=== PATIENT | female | born 1935 | race Caucasian/White ===

== ENCOUNTER 2017-01-11 02:16 | Inpatient (IN) | payer OTHER, BC ==
[2017-01-11] VITALS (7 sets, daily range): BP systolic 140–167; BP diastolic 53–83
[~2017-01-11] VITALS: Ht 165.1 cm; Wt 66.7 kg
--- NOTE | ~2017-01-11 | EKG ---
[place] [address] [facility] [employer] [place] [address] ELECTROCARDIOGRAM REPORT Name: KALIN SILVERMAN Room #: 440-P ADM IN M.R.#: [id number] Admission: 01/11/17 Attend Phys: Kenan Ricci DO Discharge: Date of : 39 Report #: [id number] THIS REPORT FOR: //name// [facility] ED Test Date: 2017-01-11 Test Time: 02:22:58 Pat Name: KALIN SILVERMAN Department: Room: 440 Gender: F Instructional Facilitator: LYDIA : 1935 Requested By: Saulo Arreola Order Number: [id number] MD: Hunter Nielsen Measurements Intervals [place] Rate: 97 P: 89 ME: 139 QRS: 72 QRSD: 100 T: 43 QT: 340 QTc: 432 Interpretive Statements Sinus rhythm Ventricular premature complex Nonspecific ST segment abnormality No previous ECG available for comparison Electronically Signed On 01-11-2017 9:06:47 CDT by Hunter Nielsen [email or web address] <ELECTRONICALLY SIGNED> By: Hunter Nielsen MD, [facility] 01/11/17 0906 1 1 Hunter Nielsen MD, FACC /EPI
[~2017-01-11 02:16] MED LIST: ADVAIR 250-501 EACH INH; DOXYCYCLINE 10100 MG PO; DUONEB 2.5-0.5 M3 ML INH; LEVAQUIN 750 M750 MG PO; LISINOPRIL5 MG PO; MEDROLDOSEPACK PO; OSELB75 PO; PREDNISONE 20 M20 MG PO; UNICOMPLEX M TA1 TA1 PO
[2017-01-11 03:14] LABS: HEMATOCRIT 39.7 % (37.0-47.0); HEMOGLOBIN 13.3 gm/dL (12.0-15.0); MCH 30.2 pg (26.0-34.0); MCHC 33.6 g/dL (28.0-37.0); MCV 89.8 fL (80.0-100.0); PLATELET COUNT 187 thou/uL (150-400); RBC 4.42 mil/uL (4.20-5.00); RDW 13.1 % (10.5-14.5); WBC 7.1 thou/uL (4.0-11.0)
[2017-01-11 03:15] LABS: MANUAL DIFF YES
[2017-01-11 03:20] LABS: ANION GAP 10 mmol/L (7-16); BUN 12 mg/dL (7-18); CALCIUM 8.8 mg/dL (8.5-10.1); CHLORIDE 105 mmol/L (98-107); CO2 25 mmol/L (21-32); CREATININE 0.7 mg/dL (0.6-1.3); GLUCOSE 128 mg/dL (70-99); POTASSIUM 3.8 mmol/L (3.5-5.1); SODIUM 140 mmol/L (136-145)
[2017-01-11 03:39] LABS: ALBUMIN 3.2 g/dL (3.4-5.0); ALKALINE PHOSPHATASE 61 U/L (46-116); CK-MB MASS 1.6 ng/mL (<0.5-3.6); MAGNESIUM 2.1 mg/dL (1.8-2.4); NT-PRO BRAIN NAT PEPTIDE 161 pg/mL (<300); SGOT 25 U/L (15-37); SGPT 26 U/L (30-65); TOTAL BILIRUBIN 0.5 mg/dL (<0.1-1.0); TOTAL PROTEIN 6.9 g/dL (6.4-8.2); TROPONIN-I < 0.04 ng/mL (<0.04-0.07)
[2017-01-11 03:40] LABS: ABSOLUTE NEUTROPHILS 4.9 thou/uL (1.4-8.2); ATYPICAL LYMPHS 6 %; TOTAL CELL COUNT 100
[2017-01-11 03:56] LABS: APTT 29.5 Seconds (24.5-32.8); PROTIME 10.5 Seconds (9.3-11.4)
[2017-01-11] MEDS ORDERED: STIOLTO RESPIMAT4 GM IH (04:56)
[2017-01-11] MEDS ORDERED: OCUVITE TABLET1 EAC1 PO (05:06)
[2017-01-11] MEDS ORDERED: ACETYL L-CARNI500 MG PO (05:07)
[2017-01-11] MEDS ORDERED: NAC500 MG PO (05:07)
[2017-01-11] MEDS ORDERED: VITAMIN B-50 (05:09)
[2017-01-11] MEDS ORDERED: VITAMINC500 PO (05:10)
[2017-01-11] MEDS ORDERED: 5-HTP50 MG (05:10)
[2017-01-11] MEDS ORDERED: UBIQUINOL100 MG (05:11)
[2017-01-11] MEDS ORDERED: GLUTATHIONE MC (05:12)
[2017-01-11] MEDS ORDERED: TURMERIC500 M1 PO (05:13)
[2017-01-11] MEDS ORDERED: L-LYSINE500 M1 (05:14)
[2017-01-11] MEDS ORDERED: SELENIMIN50 MCG (05:14)
[2017-01-11] MEDS ORDERED: COCONUT OIL100 GM (05:16)
[2017-01-11] MEDS ORDERED: GARLIC OIL3 MG (05:18)
[2017-01-11] MEDS ORDERED: ALLERGY SHOT (05:20)
[2017-01-11] MEDS ORDERED: B SHOT (05:25)
[2017-01-12 04:17] VITALS: BP 152/77
[2017-01-12 05:37] LABS: HEMATOCRIT 37.2 % (37.0-47.0); HEMOGLOBIN 12.4 gm/dL (12.0-15.0); MCH 30.1 pg (26.0-34.0); MCHC 33.4 g/dL (28.0-37.0); MCV 90.3 fL (80.0-100.0); PLATELET COUNT 183 thou/uL (150-400); RBC 4.12 mil/uL (4.20-5.00); RDW 13.6 % (10.5-14.5); WBC 7.1 thou/uL (4.0-11.0)
[2017-01-12 05:49] LABS: MANUAL DIFF YES
[2017-01-12 06:01] LABS: CALCIUM 8.7 mg/dL (8.5-10.1); CREATININE 0.6 mg/dL (0.6-1.3); POTASSIUM 3.9 mmol/L (3.5-5.1)
[2017-01-12 06:44] LABS: ABSOLUTE NEUTROPHILS 6.2 thou/uL (1.4-8.2); TOTAL CELL COUNT 100
[2017-01-12 08:00] VITALS: BP 178/71
[2017-01-12] MEDS ORDERED: PREDNISONE 10 M10 MG PO (10:43)
[2017-01-12] MEDS ORDERED: AZITHROMYCIN 2250 MG PO (10:43)
[2017-01-12 11:35] VITALS: BP 178/71
== END 2017-01-12 12:44 | disposition home or self-care (01) | DRG 191 ==
LOC: ER 02:16 → EROBS 04:05 → 4S 04:05
PROVIDERS: Emergency Medicine; Family Medicine
DX: J44.1 Chronic obstructive pulmonary disease with (acute) exacerbation (principal); E44.1 Mild protein-calorie malnutrition; I10 Essential (primary) hypertension; J06.9 Acute upper respiratory infection, unspecified; Z88.8 Allergy status to other drugs, medicaments and biological substances; Z91.018 Allergy to other foods; Z87.891 Personal history of nicotine dependence; Z79.899 Other long term (current) drug therapy; Z91.011 Allergy to milk products
CPT/HCPCS: 10100

== ENCOUNTER → 2017-09-14 | Outpatient (CLI) | payer OTHER, BC ==
[~2017-09-14] MED LIST changes: +5-HTP50 MG; +ACETYL L-CARNI500 MG PO; +ALLERGY SHOT; +AZITHROMYCIN 2250 MG PO; +B SHOT; +COCONUT OIL100 GM; +GARLIC OIL3 MG; +GLUTATHIONE MC; +L-LYSINE500 M1; +NAC500 MG PO; +OCUVITE TABLET1 EAC1 PO; +PREDNISONE 10 M10 MG PO; +SELENIMIN50 MCG; +STIOLTO RESPIMAT4 GM IH; +TURMERIC500 M1 PO; +UBIQUINOL100 MG; +VITAMIN B-50; +VITAMINC500 PO
== END ==
LOC: CAT 11:09
DX: J98.11 Atelectasis (principal); R91.1 Solitary pulmonary nodule

== ENCOUNTER → 2017-12-13 | Outpatient (CLI) | payer OTHER, BC | LOC: CAT 12:52 | DX: R91.1 Solitary pulmonary nodule (principal); J98.11 Atelectasis; J43.8 Other emphysema; J44.1 Chronic obstructive pulmonary disease with (acute) exacerbation; E44.1 Mild protein-calorie malnutrition; I10 Essential (primary) hypertension; Z88.8 Allergy status to other drugs, medicaments and biological substances ==

== ENCOUNTER → 2018-03-06 | Outpatient (CLI) | payer OTHER, BC | LOC: CAT 06:34 | DX: Z09 Encounter for follow-up examination after completed treatment for conditions other than malignant neoplasm (principal); R91.1 Solitary pulmonary nodule ==

== ENCOUNTER → 2018-09-10 | Outpatient (CLI) | payer OTHER, BC | LOC: RAD 10:48 | DX: J43.9 Emphysema, unspecified (principal); R91.1 Solitary pulmonary nodule ==